=== PATIENT | male | born 1940 | race Caucasian/White ===

== ENCOUNTER 2021-07-12 08:57 | Emergency (ER) | payer MEDICARE ==
[~2021-07-12] VITALS: Ht 167.6 cm; Wt 68.0 kg
[2021-07-12 09:08] VITALS: BP 167/71
== END 2021-07-12 14:29 | disposition home or self-care (01) ==
LOC: ER 08:57
DX: E11.40 Type 2 diabetes mellitus with diabetic neuropathy, unspecified (principal); Z90.49 Acquired absence of other specified parts of digestive tract; Z88.6 Allergy status to analgesic agent
CPT/HCPCS: 82962; 93922; 99284